=== PATIENT | female | born 1985 | race African-American/Black ===

== ENCOUNTER 2021-04-17 19:27 | Emergency (ER) | payer OTHER ==
[~2021-04-17] VITALS: Ht 175.3 cm; Wt 85.0 kg
[2021-04-17 19:30] VITALS: TEMP 98.1
[2021-04-17 19:39] LABS: HEMATOCRIT 38.8 % (37.0-47.0); HEMOGLOBIN 12.8 g/dl (12.5-16.0); MEAN CELL VOLUME 97 fl (80.0-100.0); MEAN CORPUSCULAR HEMOGLOBIN 32 pg (27.0-31.0); MEAN CORPUSCULAR HGB CONC 33 g/dl (33.0-37.0); MEAN PLATELET VOLUME 8.7 fl (7.4-10.4); PLATELET COUNT 318 K/mm3 (130-400); RED BLOOD COUNT 3.99 M/mm3 (4.10-5.30); REDCELL DISTRIBUTION WIDTH-CV 12.9 % (11.5-14.5)
[2021-04-17 19:59] LABS: ANION GAP 7 mmol/L (7-16); BLOOD UREA NITROGEN 17 mg/dL (7-17); CARBON DIOXIDE 23 mmol/L (22-30); CHLORIDE 114 mmol/L (98-107); CREATININE, serum 1.04 (0.52-1.25); GLUCOSE 90 mg/dL (74-106); POTASSIUM 3.9 mmol/L (3.4-5.0); SODIUM 143 mmol/L (137-145)
[2021-04-17 20:00] LABS: ALANINE AMINOTRANSFERASE 23 U/L (4-34); ALBUMIN 4.2 gm/dL (3.5-5.0); ALKALINE PHOSPHATASE 64 U/L (50-136); AST,SGOT 36 U/L (15-37); BILIRUBIN,TOTAL 0.2 mg/dL (0.0-1.0); CALCIUM 8.2 mg/dL (8.4-10.2); TOTAL PROTEIN 7.3 gm/dL (6.4-8.2)
[2021-04-17 20:14] LABS: ACETAMINOPHEN < 10 ug/mL (10-30); SALICYLATE < 1.0 mg/dL
[2021-04-17 20:22] LABS: ALCOHOL(ethanol),MEDICAL 349 mg/dL
[2021-04-17 20:29] LABS: TSH w REFLEX 0.557 uIU/mL (0.465-4.680)
[2021-04-17 20:40] LABS: BAND 1 % (0-10); LYMPHOCYTE 75 % (20.0-51.0); NEUTROPHILS 21 % (42.0-75.2); PLATELET ESTIMATE NORMAL (NORMAL)
[2021-04-18 03:14] LABS: COLLECTION METHOD CLEAN CATCH
[2021-04-18 03:26] LABS: MUCOUS Present /lpf; PH 5 (5-8); URINE APPEARANCE Cloudy; URINE BACTERIA Many /hpf; URINE BILIRUBIN Negative (NEGATIVE); URINE BLOOD 1+ (NEGATIVE); URINE COLOR Yellow; URINE GLUCOSE Negative (NEGATIVE); URINE KETONE Negative (NEGATIVE); URINE LEUKOCYTE ESTERASE Trace (NEGATIVE); URINE NITRATE Negative (NEGATIVE); URINE PROTEIN(semi-quant) Negative (NEGATIVE); URINE UROBILINOGEN Negative (NEGATIVE)
[2021-04-18 03:31] LABS: TRICYCLIC ANTIDEPRESS URINE NEGATIVE
[2021-04-18 15:01] VITALS: BP 118/65; PULSE 73
== END 2021-04-18 15:01 ==
LOC: COL.ER 19:27
PROVIDERS: Emergency Medicine
DX: T43.592A Poisoning by other antipsychotics and neuroleptics, intentional self-harm, initial encounter (principal); F10.129 Alcohol abuse with intoxication, unspecified; Y90.3 Blood alcohol level of 60-79 mg/100 ml; X83.8XXA Intentional self-harm by other specified means, initial encounter